=== PATIENT | female | born 1970 | race Caucasian/White ===

== ENCOUNTER → 2016-08-20 | Outpatient (CLI) | payer OTHER ==
[2016-08-20 13:29] LABS: MEAN CORPUSCULAR HEMOGLOBIN 21.2 pg (27.0-33.0); MEAN CORPUSCULAR HGB CONC 28.7 g/dl (32.0-36.5); MEAN CORPUSCULAR VOLUME 73.7 fl (80.0-96.0); RED CELL DISTRIBUTION WIDTH 16.9 % (11.5-14.5); WHITE BLOOD COUNT 6.9 K/mm3 (4.0-10.0)
== END ==
LOC: M SMT 09:53
PROVIDERS: ATTEND Obstetrics & Gynecology
DX: N92.0 Excessive and frequent menstruation with regular cycle (principal)

== ENCOUNTER → 2016-09-04 | Outpatient (CLI) | payer OTHER ==
--- NOTE | 2016-09-04 17:17 | REP ---
MRI study of the abdomen without and with IV gadolinium: History: Leiomyomas change in the uterus. Excessive infrequent menstruation. Abdomen MRI technique: Axial and coronal T1 and T2-weighted scans were obtained. True FISP, turbo spin echo, inversion recovery, and 2-D gradient echo, T1-weighted sequences are acquired. Gadolinium enhancement dose as 12.6 mL of intravenous ProHance. Abdominal MRI findings: The liver and the spleen are normal in size and homogeneous in texture. No hepatic or splenic lesion is seen. No adrenal lesion is observed on either side. There is no evidence of pleural effusion or upper abdominal ascites. The kidneys are morphologically intact and show normal symmetric contrast enhancement. No hydronephrosis is seen. No retroperitoneal mass or adenopathy is observed. No pancreatic lesion is seen Impression: Unremarkable MRI study of the abdomen without and with IV gadolinium. Signed by James Craig MD 09/04/2016 06:06 P
--- NOTE | 2016-09-04 17:23 | REP ---
MRI study of the pelvis without and with IV gadolinium: History: Leiomyomatous change in the uterus. Comparison pelvic sonography 04/12/2016. This showed a markedly enlarged fibroid uterus. Gadolinium enhancement dose: 12.6 mL of intravenous ProHance is administered. MR technique: Sagittal, axial and coronal imaging planes are utilized. T1 and T2-weighted scans were obtained with without fat saturation. MRI findings: Pelvic MRI study confirms the presence of multiple very large uterine fibroids distorting the body and fundus region of the uterus. A relatively intact cervix and lower uterine segment are seen anteriorly and inferiorly. Overall, uterine dimensions are 19.5 cm in craniocaudal span x 10.9 cm anterior to posterior x 10.5 cm medial to lateral. Numerous fibroids are seen. The three largest of these measure 10.1, 8.5 , and 6.6 cm in greatest dimension. These three are arranged from this superior to inferior in the uterine body and fundus region. There are several smaller fibroids noted. These appear to be intramural. The 8.5 cm mid uterine fibroid approaches the endometrial cavity and may be submucosal. Otherwise the endometrial cavity is difficult to define above the lower uterine segment. The left ovary is displaced superiorly but intact containing a small follicle. The right ovary is seen along the right pelvic sidewall and appears intact. No free fluid is noted. Cortical and medullary bone signal intensity is normal. No evidence of adenopathy or abdominal wall defect. Impression: Markedly enlarged fibroid uterus with multiple large fibroids as above. Signed by James Craig MD 09/04/2016 06:06 P
== END ==
LOC: M RAD 13:06
PROVIDERS: ATTEND Obstetrics & Gynecology
DX: N85.2 Hypertrophy of uterus (principal); D25.1 Intramural leiomyoma of uterus; N92.0 Excessive and frequent menstruation with regular cycle
CPT/HCPCS: 72197; 74183; A9576

== ENCOUNTER → 2016-09-06 | Outpatient (POV) | payer OTHER | LOC: M IRPOV 07:30 | DX: D25.9 Leiomyoma of uterus, unspecified (principal); N92.0 Excessive and frequent menstruation with regular cycle ==

== ENCOUNTER → 2016-10-03 | Outpatient (CLI) | payer OTHER ==
[~2016-10-03] MED LIST: COLA100C3 PO; HYDR-3713 PO; IBUP600T26 PO; ZOFR8TAB PO
[2016-10-03 11:14] LABS: MEAN CORPUSCULAR HGB CONC 30.7 g/dl (32.0-36.5); MEAN CORPUSCULAR VOLUME 81.3 fl (80.0-96.0); RED CELL DISTRIBUTION WIDTH 20.9 % (11.5-14.5); WHITE BLOOD COUNT 6.2 K/mm3 (4.0-10.0)
[2016-10-03 11:23] LABS: CONTROL LINE HCG INT CTR LINE PRESENT
[2016-10-03 11:27] LABS: INR 1.01
[2016-10-03 11:33] LABS: ANION GAP 6 MEQ/L (8-16); BLOOD UREA NITROGEN 16 MG/DL (7-18); CALCIUM LEVEL 8.6 MG/DL (8.5-10.1); CARBON DIOXIDE LEVEL 25 MEQ/L (21-32); CHLORIDE LEVEL 107 MEQ/L (98-107); CREATININE FOR GFR 0.83 MG/DL (0.55-1.02); GLOMERULAR FILTRATION RATE > 60.0 (>58); GLUCOSE, FASTING 87 MG/DL (70-105); POTASSIUM SERUM 4.5 MEQ/L (3.5-5.1); SODIUM LEVEL 138 MEQ/L (136-145)
== END ==
LOC: M LAB 10:32
DX: Z01.818 Encounter for other preprocedural examination (principal); D25.0 Submucous leiomyoma of uterus

== ENCOUNTER 2016-10-11 11:57 | Outpatient (CLI) | payer OTHER ==
[~2016-10-11] VITALS: Ht 165.1 cm; Wt 63.5 kg
[~2016-10-11 11:57] MED LIST changes: -COLA100C3 PO; +EMBOSPHERE MICROSPHERES As Ordered ONE; -HYDR-3713 PO; -IBUP600T26 PO; +ISOVUE-300 61% 50ML VIAL (Q9967) As Ordered ONE; -ZOFR8TAB PO
[2016-10-11] MEDS ORDERED: KETOROLAC 30 MG/ML VIAL (J1885) As Ordered ONE (13:07)
[2016-10-11] MEDS ORDERED: MIDAZOLAM INJ 2 MG/2 ML VIAL (J2250) As Ordered ONE (13:08)
[2016-10-11] MEDS ORDERED: ONDANSETRON 4MG/2ML VIAL (J2405) As Ordered ONE (13:08)
[2016-10-11] MEDS ORDERED: fentaNYL 100 MCG/2 ML INJECTION (J3010) As Ordered ONE (13:08)
[2016-10-11] MEDS ORDERED: CIPROFLOXACIN/D5W 400 MG/200 ML BAG (J0744) As Ordered ONE (13:08)
[2016-10-11] MEDS ORDERED: MORPHINE 1MG/ML IN 0.9% NACL 100ML IV BAG IV PRN (13:45)
[2016-10-11] MEDS ORDERED: NALOXONE INJ 0.4 MG/1 ML VIAL (J2310) IV PRN (13:45)
[2016-10-11] MEDS ORDERED: NS 1,000 ML IV SCH (13:45)
[2016-10-11] MEDS ORDERED: ONDANSETRON 4MG/2ML VIAL (J2405) IV ONE (13:45)
[2016-10-11] MEDS ORDERED: EPIDURAL/PCA KEYS XX PRN (13:45)
[2016-10-11] MEDS ORDERED: diphenhydrAMINE INJ 50MG/ML VIAL (J1200) IV PRN (13:45)
[2016-10-11] MEDS ORDERED: ONDANSETRON 4MG/2ML VIAL (J2405) IV PRN (13:45)
[2016-10-11] MEDS ORDERED: NALBUPHINE HCL 10 MG/ML AMP (J2300) IV PRN (13:45)
[2016-10-11] MEDS ORDERED: CIPROFLOXACIN 400 MG in APPROPRIATE DILUENT 1 EA IV ONE (14:00)
[2016-10-11] MEDS ORDERED: dexameTHASONE 4 MG/ML 1ML VIAL (J1100) IV ONE (14:00)
[2016-10-11] MEDS ORDERED: KETOROLAC 30 MG/ML VIAL (J1885) IV ONE (14:00)
[2016-10-11] MEDS ORDERED: ISOVUE-300 61% 50ML VIAL (Q9967) As Ordered ONE (14:35)
[2016-10-11] MEDS ORDERED: EMBOSPHERE MICROSPHERES As Ordered ONE ×2 (14:58→15:11)
--- NOTE | 2016-10-11 16:21 | REPKIM ---
Pre-procedure diagnosis: Symptomatic multiple uterine fibroids; menorrhagia, dysmenorrhea and bulk related symptoms. Post-procedure diagnosis: Same PROCEDURE PERFORMED: Left and Right uterine artery embolization. Flush pelvic arteriogram and aortogram. Intravenous moderate conscious sedation. INTERVENTIONALIST: Vladimir Sanchez MD CONSENT: The risks, benefits and alternatives to the procedure were explained to the patient and informed written consent was obtained. SEDATION: Conscious sedation using Versed 1.5 mg IV and Fentanyl 100 mcg IV; starting time at 1335 and end at 1526. Independent trained observer was present during the entire duration of the conscious sedation for monitoring. MEDICATIONS: Cipro 400mg IV, Decadron 8mg IV, Toradol 60mg IV, Zofran 8mg IV, Versed, Fentanyl, Local Lidocaine CONTRAST: 142 mL Isovue 300EBL: 20 mL FLUORO TIME: 20.6 minutes EMBOSPHERES: 500-700 microns x seven vials; two on the left and five on the right, Lot #[id number], [id number] Description of procedure: The patient was brought to the interventional radiology suite and was positioned supine on the table. Time out procedure was performed. The right groin was prepped and draped in a sterile fashion. A 4- Tajik vascular sheath was introduced into the right common femoral artery using the Seldinger technique with a micropuncture needle under ultrasound guidance, after infiltration of the skin and deep tissues with local anesthetic. A 4-Tajik Omniflush catheter was introduced over a guidewire. The catheter was then positioned in the lower abdominal aorta. Contrast was injected and non-selective pelvic arteriogram was performed in the frontal projection. Catheter exchange was then performed and a 4-Tajik seIective catheter was advanced into the left internal iliac artery where roadmapping was used to guide a microcatheter into the left uterine artery, perform angiography , and subsequent embolization using two vials of 500 to 700-micron Embospheres. Post embolization follow-up angiography was performed. Catheter exchange was performed and a 4-Tajik SOS catheter was introduced over a guidewire. Coaxial catheter and microcatheter system was then advanced into the ipsilateral right internal iliac artery where similar guidance was used to advance a microcatheter into the right uterine artery, perform angiography, embolization using five vials of 500 to 700 micron Embospheres and post embolization follow- up angiography. Catheter exchange was performed and a 4-Tajik Omni flush catheter was introduced over a guidewire. The catheter was advanced and under fluoroscopy positioned in the abdominal aorta at the level of the renal arteries. Contrast was injected and abdominal aortogram was performed in the frontal projection. The catheter and vascular sheath were removed. Hemostasis was achieved by manual compression over the puncture sites. The patient tolerated the procedure well with no immediate complications. This procedure was performed with fluoroscopic guidance. Dr. Sanchez was present. Description of findings: Flush pelvic arteriogram/aortogram demonstrates a classic anatomy. The uterus is markedly enlarged. Left and right uterine arteries are hypertrophied, more so on the right side, supplying the multiple hypervascular fibroids. No obvious patent ovarian-uterine anastomosis is seen. After embolization, desired flow reduction is seen. IMPRESSION: Successful uterine fibroids embolization as discussed above. PLAN: Post-procedure orders were written for pain and nausea control. cc: MD DIANE Nguyen
[2016-10-11] MEDS ORDERED: ONDANSETRON 4 MG TAB (S0181) PO PRN (20:15)
[2016-10-11] MEDS ORDERED: D5W/0.45% SODIUM CHLORIDE 1,000 ML IV SCH (20:15)
[2016-10-11] MEDS: KETOROLAC 30 MG/ML VIAL (J1885) IV SCH (20:23)
[2016-10-11 22:00] VITALS: BP 123/75
[2016-10-12] MEDS: KETOROLAC 30 MG/ML VIAL (J1885) IV SCH (04:54)
[2016-10-12 06:00] VITALS: BP 105/59
[2016-10-12] MEDS ORDERED: NORCO, ANEXSIA 5/325MG TABLET (HYDROcodone/ACETAMINOPHEN) PO PRN (07:00)
[2016-10-12] MEDS ORDERED: HYDR-3713 PO (08:25)
[2016-10-12] MEDS ORDERED: DOCUSATE SODIUM 100 MG CAP PO PRN (08:30)
[2016-10-12] MEDS ORDERED: ONDANSETRON 4 MG TAB (S0181) PO PRN (08:30)
[2016-10-12] MEDS ORDERED: IBUPROFEN 600 MG TAB PO SCH ×2 (09:00→15:00)
[2016-10-12] MEDS ORDERED: ZOFR8TAB PO (13:03)
[2016-10-12] MEDS ORDERED: IBUP600T26 PO (13:04)
[2016-10-12] MEDS ORDERED: COLA100C3 PO (13:06)
== END 2016-10-12 15:00 | disposition home or self-care (01) ==
LOC: M IRPRO 11:57 → M MS5PR 16:09 → M IRPRO 10-12 15:00 → M MS5PR 10-12 15:00
DX: D25.9 Leiomyoma of uterus, unspecified (principal); N92.0 Excessive and frequent menstruation with regular cycle; N94.6 Dysmenorrhea, unspecified
CPT/HCPCS: 36247; 37243; 99152; 99153; C1769; C1887; C1894; J0744; J1100; J1885; J2250; J2405; J3010; Q9967

== ENCOUNTER → 2016-11-06 | Outpatient (POV) | payer OTHER ==
[~2016-11-06] MED LIST changes: +COLA100C3 PO; -EMBOSPHERE MICROSPHERES As Ordered ONE; +HYDR-3713 PO; +IBUP600T26 PO; -ISOVUE-300 61% 50ML VIAL (Q9967) As Ordered ONE; +ZOFR8TAB PO
== END ==
LOC: M IRPOV 14:46
DX: D25.9 Leiomyoma of uterus, unspecified (principal); N92.6 Irregular menstruation, unspecified; Z98.890 Other specified postprocedural states

== ENCOUNTER → 2017-09-18 | Outpatient (REF) | payer OTHER ==
[2017-09-21 14:09] LABS: HPV HYBRID CAPTURE II Negative (Negative)
== END ==
LOC: M SFHCWAGY 14:45
DX: Z12.4 Encounter for screening for malignant neoplasm of cervix (principal)

== ENCOUNTER → 2018-01-08 | Outpatient (REF) | payer OTHER | LOC: M LAB REF 17:35 | DX: D25.1 Intramural leiomyoma of uterus (principal); N92.0 Excessive and frequent menstruation with regular cycle | CPT/HCPCS: 88304 ==

== ENCOUNTER → 2020-03-22 | Outpatient (REF) | payer OTHER, MEDICAID ==
[~2020-03-22] MED LIST changes: -COLA100C3 PO; +COLA100C5 PO; +IBUP-1022 PO; -IBUP600T26 PO; -ZOFR8TAB PO; +ZOFR8TAB24 PO
[2020-03-22 17:27] LABS: ALT/SGPT 66 U/L (12-78); BILIRUBIN,TOTAL 0.7 MG/DL (0.2-1.0); BLOOD UREA NITROGEN 19 MG/DL (7-18); CARBON DIOXIDE LEVEL 30 MEQ/L (21-32); CHLORIDE LEVEL 105 MEQ/L (98-107); CHOLESTEROL LEVEL 294 MG/DL (<200); CHOLESTEROL RISK RATIO 4.523 (<5); CREATININE FOR GFR 0.95 MG/DL (0.55-1.30); FREE T4 0.89 NG/DL (0.76-1.46); GLOMERULAR FILTRATION RATE > 60.0 (>51); GLUCOSE, FASTING 93 MG/DL (70-100); HDL CHOLESTEROL 65 MG/DL (>40); LDL CHOLESTEROL 199 MG/DL (<100); NON-HDL-C 229 MG/DL; POTASSIUM SERUM 4.7 MEQ/L (3.5-5.1); SODIUM LEVEL 140 MEQ/L (136-145); TOTAL PROTEIN 7.7 GM/DL (6.4-8.2); TRIGLYCERIDES LEVEL 151 MG/DL (<150)
== END ==
LOC: M LAB REF 16:21
PROVIDERS: ATTEND Family Medicine Addiction Medicine
DX: Z00.00 Encounter for general adult medical examination without abnormal findings (principal)

== ENCOUNTER → 2022-09-14 | Outpatient (CLI) | payer OTHER | LOC: M RAD 15:44 | PROVIDERS: ATTEND Family Medicine Addiction Medicine | DX: M25.511 Pain in right shoulder (principal) ==

== ENCOUNTER → 2024-07-29 | Outpatient (REF) | payer OTHER | LOC: M LAB REF 16:14 | PROVIDERS: ATTEND Family Medicine Addiction Medicine | DX: R39.9 Unspecified symptoms and signs involving the genitourinary system (principal) ==